=== PATIENT | female | born 1985 | race Caucasian/White ===

== ENCOUNTER 2016-10-21 17:27 | Emergency (ER) | payer OTHER ==
--- NOTE | 2016-10-21 17:50 | EDPHY ---
H & P Stated Complaint: Doing pack test for [employer] today, SOB, HPI/ROS: HPI CHIEF COMPLAINT: Dyspnea with exercise HISTORY OF PRESENT ILLNESS: This patient very pleasant 31-year-old female no significant medical history except for asthma,, seizures on Lamictal, exercise- induced asthma, she presents emergency room after she was doing a pack test with her department. She has a ranger. She states approximately 17 minutes into her test she started having trouble breathing with shortness of breath and feeling as if she cannot get a lot area. She does describe sensation of wheezing and stridor. She had to stop that pack test. The 3 mile total course , she made 17 minutes into 1 mi. No chest pain. Only shortness of breath is since resolved. She used her inhaler multiple times. Upon arrival here in emergency room she appears well nontoxic no acute distress no tachypnea good air movement. No wheezing. No history DVT or PE not on control. she tells me upon arrival to the emergency room she feels well. No complaints. No shortness of breath or chest pain. Past Medical History: asthma, exercise-induced asthma, Lamictal for seizures Past Surgical History: No recent surgical history Social History: Denies daily use drugs alcohol tobacco products Family History: Noncontributory ROS REVIEW OF SYSTEMS: A comprehensive 10 point review of systems is otherwise negative aside from elements mentioned in the history of present illness. Exam Constitutional triage nursing summary reviewed, vital signs reviewed, awake/ alert. Eyes normal conjunctivae and sclera, EOMI, PERRLA. HENT normal inspection, atraumatic, moist mucus membranes, no epistaxis, neck supple/ no meningismus, no raccoon eyes. Respiratory clear to auscultation bilaterally, normal breath sounds, no respiratory distress, no wheezing. Cardiovascular rate normal, regular rhythm, no murmur, no edema, distal pulses normal. Gastrointestinal soft, non-tender, no rebound, no guarding, normal bowel sounds, no distension, no pulsatile mass. Genitourinary no CVA tenderness. Musculoskeletal no midline vertebral tenderness, full range of motion, no calf swelling, no tenderness of extremities, no meningismus, good pulses, neurovascularly intact. Skin pink, warm, & dry, no rash, skin atraumatic. Neurologic awake, alert and oriented x 3, AAOx3, moves all 4 extremities equally, motor intact, sensory intact, CN II-XII intact, normal cerebellar, normal vision, normal speech. Psychiatric normal mood/affect. Heme/Lymph/Immune no lymphadenopathy. Differential Diagnosis: includes but is not limited to and in no particular order exercise-induced asthma, bronchospasm, pneumothorax, myocardial ischemia which I doubt Medical Decision Making: Plan for this patient two view chest x-ray, EKG, DuoNeb breathing treatment. Re-evaluation. Re-evaluation: EKG interpretation by me on record in [facility] system. Impression normal sinus rhythm: Sinus rhythm rate of 85, no acute ischemic changes specifically no ST elevation, ST depression T-wave abnormalities. No prolonged intervals. Unremarkable EKG. The chest x-ray two view: bronchitis. Otherwise unremarkable no pneumothorax or pneumonia. Image interpreted myself. 1946: re-evaluation re-examination at this time is resting comfortably clear lung griffith. Tells me DuoNeb breathing treatment helped her slightly. Lungs are clear. Good air movement no hypoxia. Patient feels fine she would like to go home. EKG reviewed unremarkable chest x-ray bronchitis. Will refill her albuterol inhaler I do recommend that she follows up with her primary care doctor about exercise-induced asthma bronchospasm. May the long-acting inhaled inhaler like Advair. She understands. Strict return precautions given passing out chest pain shortness of breath return emergency room she understands. Source: Patient - Personal History LMP (Females 10-55): Over 28 Days Ago Current Tetanus Diphtheria and Acellular Pertussis (TDAP): Yes - Medical/Surgical History Hx Asthma: Yes Other PMH: Asthma, seizures - Social History Smoking Status: Never smoked Constitutional: Initial Vital Signs Heart Rate 92 10/21/16 17:34 Respiratory Rate 14 10/21/16 17:34 Blood Pressure 130/69 H 10/21/16 17:34 O2 Sat (%) 96 10/21/16 17:34 O2 Delivery Mode Room Air Allergies/Adverse Reactions: No Known Allergies Allergy (Unverified 10/21/16 17:37) Home Medications: Medication Instructions Recorded Albuterol [Proventil Inhaler HFA 1 - 2 puffs IH Q4H #1 mdi 10/21/16 (*)] Albuterol [Ventolin Hfa Inhaler] 200 puffs IH 10/21/16 lamoTRIgine [LamICTAL 100 MG (*)] 100 mg PO 10/21/16 Medical Decision Making - Diagnostics Imaging: Imaging Impressions Chest X-Ray 10/21/16 17:57 Impression: Minimal airways disease. Otherwise normal. Departure - Departure Disposition: Home, Routine, Self-Care Clinical Impression: Bronchitis, Bronchospasm Condition: Good Instructions: Bronchospasm (ED), Exercise-Induced Bronchoconstriction (ED) Additional Instructions: 1.Stay well-hydrated. 2. please follow up with her primary care doctor 3.Return emergency room if you have any worsening symptoms questions or concerns. Referrals: Celina Trejo MD [Primary Care Provider] - As per Instructions Prescriptions: Albuterol [Proventil Inhaler HFA (*)] 1 - 2 puffs IH Q4H #1 mdi
[2016-10-21] MEDS ORDERED: IPRATROPIUM/ALBUTEROL 3 ML DEYVIAL ONE (17:56)
--- NOTE | 2016-10-21 18:19 | CPEKG ---
Heart Rate: 85 RR Interval: 706 P-R Interval: 160 QRSD Interval: 76 QT Interval: 372 QTC Interval: 443 P [place]: 38 QRS [place]: 20 T Wave [place]: 21 EKG Severity - NORMAL ECG - EKG Impression: SINUS RHYTHM Electronically Signed By: Travis Tillman 21-Oct-2016 21:22:39
[2016-10-21 20:13] VITALS: BP 111/73; PULSE 91; RESP 20; TEMP 98.2; O2SAT 98
== END 2016-10-21 20:12 | disposition home or self-care (01) ==
DX: J20.9 Acute bronchitis, unspecified (principal); J45.909 Unspecified asthma, uncomplicated

== ENCOUNTER → 2018-12-04 | Outpatient (CLI) | payer OTHER | LOC: FIMAGING 07:33 ==